=== PATIENT | male | born 1940 | race Caucasian/White ===

== ENCOUNTER 2016-10-16 13:47 | Outpatient (CLI) | payer MEDICARE | END 2016-10-16 13:48 | disposition home or self-care (01) | DX: I48.91 Unspecified atrial fibrillation (principal) ==

== ENCOUNTER 2017-11-21 08:00 | Outpatient (CLI) | payer MEDICARE ==
[2017-11-21 17:33] LABS: INR 3.3 (0.8-1.2); PT - PROTHROMBIN TIME 35.1 secs (9.9-12.6)
== END 2017-11-21 23:59 | disposition home or self-care (01) ==
LOC: LAB.F 08:00
PROVIDERS: ATTEND Emergency Medicine
DX: I48.91 Unspecified atrial fibrillation (principal)
CPT/HCPCS: 36415; 85610

== ENCOUNTER 2017-12-26 13:33 | Outpatient (CLI) | payer MEDICARE ==
[2017-12-26 18:32] LABS: INR 3.1 (0.8-1.2)
== END 2017-12-26 13:34 | disposition home or self-care (01) ==
LOC: LAB.F 13:33
PROVIDERS: ATTEND Emergency Medicine
DX: I48.91 Unspecified atrial fibrillation (principal)
CPT/HCPCS: 36415; 85610

== ENCOUNTER 2018-02-05 13:44 | Outpatient (CLI) | payer MEDICARE ==
[2018-02-05 17:42] LABS: INR 3.7 (0.8-1.2); PT - PROTHROMBIN TIME 39.4 secs (9.9-12.6)
== END 2018-02-05 13:45 | disposition home or self-care (01) ==
LOC: LAB.F 13:44
PROVIDERS: ATTEND Emergency Medicine
DX: I48.91 Unspecified atrial fibrillation (principal)
CPT/HCPCS: 36415; 85610

== ENCOUNTER 2018-02-18 13:49 | Outpatient (CLI) | payer MEDICARE | END 2018-02-18 13:50 | disposition home or self-care (01) | LOC: LAB.F 13:49 | PROVIDERS: ATTEND Emergency Medicine | DX: I48.91 Unspecified atrial fibrillation (principal) | CPT/HCPCS: 85610 ==

== ENCOUNTER 2018-02-26 13:15 | Outpatient (CLI) | payer MEDICARE ==
[2018-02-26 17:34] LABS: INR 3.6 (0.8-1.2); PT - PROTHROMBIN TIME 38.5 secs (9.9-12.6)
== END 2018-02-26 13:16 | disposition home or self-care (01) ==
LOC: LAB.F 13:15
PROVIDERS: ATTEND Emergency Medicine
DX: I48.91 Unspecified atrial fibrillation (principal)
CPT/HCPCS: 36415; 85610

== ENCOUNTER 2018-03-05 11:13 | Outpatient (CLI) | payer MEDICARE ==
[2018-03-05 17:59] LABS: INR 4.2 (0.8-1.2); PT - PROTHROMBIN TIME 45.2 secs (9.9-12.6)
== END 2018-03-05 11:14 | disposition home or self-care (01) ==
LOC: LAB.F 11:13
PROVIDERS: ATTEND Emergency Medicine
DX: I48.91 Unspecified atrial fibrillation (principal)
CPT/HCPCS: 36415; 85610

== ENCOUNTER 2018-03-12 08:00 | Outpatient (CLI) | payer MEDICARE ==
[2018-03-12 17:56] LABS: INR 3.6 (0.8-1.2); PT - PROTHROMBIN TIME 38.9 secs (9.9-12.6)
== END 2018-03-12 08:01 | disposition home or self-care (01) ==
LOC: LAB.F 08:00
PROVIDERS: ATTEND Emergency Medicine
DX: I48.91 Unspecified atrial fibrillation (principal)
CPT/HCPCS: 36415; 85610

== ENCOUNTER 2018-03-24 13:22 | Outpatient (CLI) | payer MEDICARE ==
[2018-03-24 18:18] LABS: INR > 10.0 (0.8-1.2)
[2018-03-24 22:45] LABS: PT - PROTHROMBIN TIME > 120.0 secs (9.9-12.6)
== END 2018-03-24 13:23 | disposition home or self-care (01) ==
LOC: LAB.F 13:22
PROVIDERS: ATTEND Emergency Medicine
DX: I48.91 Unspecified atrial fibrillation (principal)
CPT/HCPCS: 36415; 85610

== ENCOUNTER 2018-03-24 19:49 | Emergency (ER) | payer MEDICARE ==
[2018-03-24 20:07] VITALS: BP 107/73
[2018-03-24] MEDS ORDERED: PHYTONADIONE 10 MG/ML AMP PO STA (20:26)
[2018-03-24] MEDS ORDERED: CHERRY SYRUP 10 ML UDC PO ONE (20:26)
--- NOTE | 2018-03-24 20:35 | ED Physician Documentation ---
History of Present Illness - Stated complaint Stated Complaint: INR ISSUE/SOA - Chief complaint Chief Complaint: General - History obtained from History obtained from: Patient - History of Present Illness Timing: Today - Additonal information Additional information: patient had routine blood draw earlier today, INR was "in excess of 9" (per patient), and PMD instructed patient to come to ED for vitamin K. He has no symptoms at this time. Takes coumadin for atrial fibrillation Review of Systems Cardiac: reports: Reviewed and negative Respiratory: reports: Reviewed and negative GI: reports: Reviewed and negative Endocrine: denies: Easy bruising / bleeding PD PAST MEDICAL HISTORY - Past Medical History Past Medical History: Yes Cardiovascular: Atrial fibrillation - Allergies Allergies/Adverse Reactions: Allergies Allergy/AdvReac Type Severity Reaction Status Date / Time [id number] Reductase AdvReac Unknown Verified 03/24/18 20:07 Inhibitor - Social History Does the pt smoke?: No Smoking Status: Never smoker Does the pt drink ETOH?: No Does the pt have substance abuse?: No PD ED PE NORMAL - Vitals Vital signs reviewed: Yes - General General: Alert and oriented X 3, No acute distress, Well developed/nourished - Respiratory Respiratory: No respiratory distress, Clear bilaterally - Derm Derm: Normal color, Warm and dry PD ED PE EXPANDED - Cardiac Cardiac: Irregularly irregular, Murmur Present (2/6 LALITA ) Results - Vitals Vitals: Vital Signs - 24 hr 03/24/18 20:01 Temperature 36.7 C Heart Rate 80 Respiratory 17 Rate Blood Pressure 107/73 O2 Saturation 98 Oxygen O2 Source Room air PD MEDICAL DECISION MAKING - ED course Complexity details: considered differential, d/w patient - Sepsis Event Vital Signs: Vital Signs - 24 hr 03/24/18 20:01 Temperature 36.7 C Heart Rate 80 Respiratory 17 Rate Blood Pressure 107/73 O2 Saturation 98 Oxygen O2 Source Room air Departure - Departure Disposition: 01 Home, Self Care Clinical Impression: Supratherapeutic INR Condition: Good Instructions: Coumadin Comments: Your INR was too high today. You were given vitamin K in the ER, which will help reverse this. Do not take your warfarin (coumadin) until you are instructed to do so by your prescribing physician. Contact your prescribing physician in the morning to discuss their recommendations regarding further testing and how and when to resume your warfarin. Discharge Date/Time: 03/24/18 20:35
== END 2018-03-24 20:35 | disposition home or self-care (01) ==
LOC: ED 19:49
DX: R79.1 Abnormal coagulation profile (principal); I48.91 Unspecified atrial fibrillation; Z79.01 Long term (current) use of anticoagulants
CPT/HCPCS: 36415; 85610; 99282; 99283; A9270

== ENCOUNTER 2018-03-25 10:21 | Outpatient (CLI) | END 2018-03-25 10:22 | disposition home or self-care (01) ==

== ENCOUNTER 2018-03-28 11:08 | Outpatient (CLI) | payer MEDICARE | END 2018-03-28 11:09 | disposition home or self-care (01) | LOC: LAB.F 11:08 | PROVIDERS: ATTEND Emergency Medicine | DX: I48.91 Unspecified atrial fibrillation (principal) | CPT/HCPCS: 85610 ==

== ENCOUNTER 2018-04-17 17:30 | Outpatient (CLI) | payer MEDICARE ==
[2018-04-17 20:34] LABS: BASOPHILS % (AUTO) 0.6 %; EOSINOPHILS % (AUTO) 2.4 %; HGB - HEMOGLOBIN 9.9 g/dL (14.0-18.0); MEAN CORPUSCULAR HEMOGLOBIN 29.4 pg (27.0-31.0); MEAN CORPUSCULAR HGB CONC 32.9 g/dL (32.0-36.0); MEAN CORPUSCULAR VOLUME 89.5 fL (80.0-94.0); MEAN PLATELET VOLUME 9.6 fL (7.4-11.4); MONOCYTES % (AUTO) 9.3 %; NEUTROPHILS % (AUTO) 79.7 %; PLT - PLATELET COUNT 259 10^3/uL (130-450); RED BLOOD COUNT 3.35 10^6/uL (4.70-6.10); RED CELL DISTRIBUTION WIDTH 14.6 % (12.0-15.0); WHITE BLOOD COUNT 8.1 x10^3/uL (4.8-10.8)
[2018-04-17 20:35] LABS: ABNORMAL LYMPHS % (MANUAL) 0 %
[2018-04-17 20:40] LABS: CALCIUM 8.5 mg/dL (8.5-10.3); CREATININE 1.1 mg/dL (0.6-1.2)
[2018-04-17 20:50] LABS: BAND NEUTROPHILS % (MANUAL) 3 %; DIFFERENTIAL COMMENT MANUAL DIFFERENTIAL; EOSINOPHILS # (MANUAL) 0.1 10^3/uL (0-0.7); LYMPHOCYTES # (MANUAL) 0.4 10^3/uL (1.5-3.5); LYMPHOCYTES % (MANUAL) 5 %; MONOCYTES # (MANUAL) 0.5 10^3/uL (0.0-1.0); NEUTROPHILS # (MANUAL) 7.1 10^3/uL (1.5-6.6); NEUTROPHILS % (MANUAL) 85 %; PLATELET ESTIMATE, MANUAL NORMAL (130-450,000) (NORMAL); PLATELET MORPHOLOGY NORMAL APPEARANCE (NORMAL); RBC MORPHOLOGY (MULTIPLE) 1+ POLYCHROMASIA (NORMAL)
== END 2018-04-17 17:31 | disposition home or self-care (01) ==
LOC: LAB.R 17:30
DX: I10 Essential (primary) hypertension (principal); D64.9 Anemia, unspecified
CPT/HCPCS: 80048; 85025

== ENCOUNTER 2018-04-24 13:53 | Outpatient (CLI) | payer MEDICARE | END 2018-04-24 13:54 | disposition home or self-care (01) | LOC: LAB.F 13:53 | PROVIDERS: ATTEND Emergency Medicine | DX: I48.91 Unspecified atrial fibrillation (principal) | CPT/HCPCS: 85610 ==

== ENCOUNTER 2018-04-28 13:06 | Outpatient (CLI) | payer MEDICARE | END 2018-04-28 13:07 | disposition home or self-care (01) | LOC: LAB.F 13:06 | PROVIDERS: ATTEND Emergency Medicine | DX: I48.91 Unspecified atrial fibrillation (principal) | CPT/HCPCS: 85610 ==

== ENCOUNTER 2018-05-03 16:25 | Emergency (ER) | payer MEDICARE ==
[2018-05-03 16:42] VITALS: BP 143/78
--- NOTE | 2018-05-03 16:49 | ED Physician Documentation ---
History of Present Illness - Stated complaint Stated Complaint: KIDNEY BAG PUNCTURED - Chief complaint Chief Complaint: General - History obtained from History obtained from: Patient - History of Present Illness Timing: Today (77-year-old gentleman who had kidney surgery bilaterally 2 months ago at [facility] and has nephrostomies in place. The drainage bag punctured on the left today and needs a new bag, no other new complaints.) Review of Systems Constitutional: denies: Fever, Chills Cardiac: denies: Chest pain / pressure, Palpitations Respiratory: reports: Dyspnea (chronic). denies: Cough PD PAST MEDICAL HISTORY - Past Medical History Cardiovascular: Atrial fibrillation - Allergies Allergies/Adverse Reactions: Allergies Allergy/AdvReac Type Severity Reaction Status Date / Time Mihvejz-Ayk-Trk Reductase AdvReac Unknown Verified 05/03/18 16:42 Inhibitor - Social History Does the pt smoke?: No Smoking Status: Never smoker Does the pt drink ETOH?: No Does the pt have substance abuse?: No PD ED PE NORMAL - Vitals Vital signs reviewed: Yes - General General: Alert and oriented X 3, No acute distress - Abdomen Abdomen: Soft, Non tender - Back Back: Other (bilateral nephrostomies with clear yellow urine in bag) - Neuro Neuro: Alert and oriented X 3, Normal speech Results - Vitals Vitals: Vital Signs - 24 hr 05/03/18 16:40 Temperature 36.6 C Heart Rate 94 Respiratory 18 Rate Blood Pressure 143/78 H O2 Saturation 99 Oxygen O2 Source Room air PD MEDICAL DECISION MAKING - ED course ED course: Nobody in central supply or the house sup could find the appropriate bag, the nurse tried to jury rig something to get him through the weekend. - Sepsis Event Vital Signs: Vital Signs - 24 hr 05/03/18 16:40 Temperature 36.6 C Heart Rate 94 Respiratory 18 Rate Blood Pressure 143/78 H O2 Saturation 99 Oxygen O2 Source Room air Departure - Departure Disposition: 01 Home, Self Care Clinical Impression: Nephrostomy complication Condition: Good Record reviewed to determine appropriate education?: Yes Instructions: Nephrostomy Percutaneous Dc Comments: Your blood pressure was elevated today on check into the emergency department. This does not mean that you have hypertension, it is a common phenomenon to come to the emergency department and have elevated blood pressure. I recommend that you see your primary care physician within the week to have it rechecked when you are feeling better. Discharge Date/Time: 05/03/18 17:50
== END 2018-05-03 17:50 | disposition home or self-care (01) ==
LOC: ED 16:25
DX: T83.89XA Other specified complication of genitourinary prosthetic devices, implants and grafts, initial encounter (principal); R03.0 Elevated blood-pressure reading, without diagnosis of hypertension
CPT/HCPCS: 99282; 99283

== ENCOUNTER 2018-05-15 13:22 | Outpatient (CLI) | payer MEDICARE | END 2018-05-15 13:23 | disposition home or self-care (01) | LOC: LAB.F 13:22 | PROVIDERS: ATTEND Emergency Medicine | DX: I48.91 Unspecified atrial fibrillation (principal) | CPT/HCPCS: 85610 ==

== ENCOUNTER → 2018-05-20 | Outpatient (CLI) | payer MEDICARE | LOC: LAB.F 11:57 | PROVIDERS: ATTEND Emergency Medicine | DX: I48.91 Unspecified atrial fibrillation (principal) | CPT/HCPCS: 85610 ==

== ENCOUNTER 2018-06-04 11:09 | Outpatient (CLI) | payer MEDICARE | END 2018-06-04 11:10 | disposition home or self-care (01) | LOC: LAB.F 11:09 | PROVIDERS: ATTEND Emergency Medicine | DX: I48.91 Unspecified atrial fibrillation (principal) | CPT/HCPCS: 85610 ==